=== PATIENT | female | born 1975 ===

== ENCOUNTER 2017-04-19 13:57 | Emergency (ER) | payer MEDICAID ==
[2016-04-08 23:35] VITALS: BMI 27.3
--- NOTE | 2017-04-19 14:41 | OBDCSUM ---
Datetime: 04/19/2017 14:39 Discharged to, Provider: Home Follow up at, Provider: apr 23 Follow up in weeks, Provider: clinic Discharge Comment, Provider: no sex po hyrationl labor given f/u in clinic in apr 23 Discharge Diagnosis Prov Other: 37wee previous c/s nst
--- NOTE | 2017-04-19 14:42 | OBHP ---
Datetime: 04/19/2017 14:36 IP Adm Impression: Term, intrauterine IP Admit Plan: Discharge home Admit Comment, IP Provider: at 37+weekscame with c/o ctxs started 5.30 pm, irrg ,no vb, lof,+fm . pt sytestes baby not moving much. pt has bad variciose veins obhx 2 c/s pmh de med pnv all nkda psh c/s soch de ve closed//-3 a/p at 37weeks previous c/s r/o labor dc home no sex po hyrationl labor given f/u in clinic in apr 23 Pelvic Type - PN: Adequate Extremities - PN: Normal Abdomen - PN: Normal Back - PN: Normal Breast - PN: Normal Lungs - PN: Normal Heart - PN: Normal Thyroid - PN: Normal Neurologic - PN: Normal HEENT - PN: Normal General - PN: Normal FHR - Baseline A Provider: 130 Contraction Comments Provider: none Comments, ACOG Physical Exam: gravid,nontender ex n edema dilated varicose veins IP Hx Assessment: The History has been Reviewed and is Current EGA AdmitDate IP: 37.1 Vital Signs Provider: Reviewed; Within Normal Limits IP Chief Complaint: Uterine contractions NICHD Variability Prov Fetus A: Moderate 6-25bpm NICHD Accel Fetus A IP Provider: 15X15 Dilatation, Provider: 0 Effacement, Provider: 0 Station, Provider: -3 Genitourinary Exam: Normal DTRs - PN: Normal
[2017-04-19 14:45] LABS: URINE BACTERIA RARE (<OCC); URINE BILIRUBIN NEGATIVE (NEGATIVE); URINE BLOOD NEGATIVE (NEGATIVE); URINE COLOR Straw (YELLOW); URINE GLUCOSE (UA) NORMAL (Normal); URINE KETONE NEGATIVE (NEGATIVE); URINE LEUKOCYTE ESTERASE NEG Leu/uL (Negative); URINE PROTEIN NEGATIVE (NEGATIVE); URINE UROBILINOGEN NORMAL mg/dL (0.2-1.0); WBC URINE < 1 /hpf (0-5)
[2017-04-19 19:13] VITALS: BP 118/73; PULSE 74; RESP 18; TEMP 97.9; O2SAT 99
== END 2017-04-19 14:55 | disposition home or self-care (01) ==
LOC: C.EROB 13:57
DX: O60.03 Preterm labor without delivery, third trimester (principal); Z3A.37 37 weeks gestation of pregnancy

== ENCOUNTER 2017-05-04 06:45 | Inpatient (IN) | payer MEDICAID ==
[2017-05-04 06:44] VITALS: BMI 25.9
[2017-05-04] MEDS: Lactated Ringer's 1,000 ML IV SCH ×2 (06:53→18:32)
[2017-05-04] MEDS ORDERED: cefOXitin IV 2 gm in Dextrose 2 GM/50 ML BAG IVPB ONE ×2 (06:55→07:16)
[2017-05-04] MEDS ORDERED: Sodium Citrate/Citric Acid 15 ml Sol PO ONE (06:55)
[2017-05-04] MEDS ORDERED: Sodium Citrate/Citric Acid 15 ml Sol ONE (07:16)
[2017-05-04 07:22] LABS: BASO % 0.4 % (0.0-2.0); EOS # 0.1 K/uL (0.0-0.7); EOS % 0.9 % (0.0-4.0); LYMPH % 25.1 % (20.0-40.0); MEAN CORPUSCULAR HEMOGLOBIN 30.5 pg (27.0-31.0); MEAN CORPUSCULAR HGB CONC 34.3 g/dL (33.0-37.0); MEAN PLATELET VOLUME 8.1 fL (7.2-11.7); MONO # 0.3 K/uL (0.0-0.8); MONO % 4.2 % (0.0-10.0); RED CELL DISTRIBUTION WIDTH 13.5 % (11.5-14.5); WHITE BLOOD COUNT 7.8 K/uL (4.8-10.8)
[2017-05-04 07:25] LABS: MEAN CELL VOLUME 88.9 fL (81.0-99.0)
[2017-05-04 07:35] LABS: CHLORIDE 106 mmol/L (98-107); SODIUM 134 mmol/L (132-148)
[2017-05-04 07:36] LABS: POTASSIUM 3.4 mmol/L (3.6-5.2); RBC URINE < 1 /hpf (0-3); URINE BACTERIA RARE (<OCC); URINE BILIRUBIN NEGATIVE (NEGATIVE); URINE BLOOD NEGATIVE (NEGATIVE); URINE COLOR Yellow (YELLOW); URINE GLUCOSE (UA) NORMAL (Normal); URINE KETONE NEGATIVE (NEGATIVE); URINE LEUKOCYTE ESTERASE NEG Leu/uL (Negative); URINE PROTEIN NEGATIVE (NEGATIVE); URINE UROBILINOGEN NORMAL mg/dL (0.2-1.0); WBC URINE < 1 /hpf (0-5)
[2017-05-04 07:38] LABS: ALB/GLOB RATIO 0.9 (1.0-2.1); ALKALINE PHOSPHATASE 156 U/L (38-126); ALT/SGPT 30 U/L (9-52); AST/SGOT 26 U/L (14-36); BILIRUBIN,TOTAL 0.5 mg/dL (0.2-1.3); BLOOD UREA NITROGEN 10 mg/dL (7-17); CARBON DIOXIDE 19 mmol/L (22-30); GFR AFRICAN-AMERICAN > 60; TOTAL PROTEIN 7.2 g/dL (6.3-8.3)
[2017-05-04 07:39] LABS: CALCIUM 8.6 mg/dl (8.6-10.4); GLUCOSE,RANDOM 69 mg/dL (65-105)
[2017-05-04] MEDS ORDERED: Oxytocin 10 Units/ml Inj ONE (07:50)
[2017-05-04] MEDS ORDERED: Oxycodone/Acetaminophen 5/325 mg Tab PO PRN (07:58)
--- NOTE | 2017-05-04 07:59 | OBADHP ---
Datetime: 05/04/2017 07:01 Admit Comment, IP Provider: Patient is a 42 year old at 39 weeks 2 days GORDY 05/09/17 by 12w5d US presents to L+D for scheduled repeat C/S. Patient is doing well, endorses +FM. Feeling occasional contractions . Denies LOF, Vaginal Bleeding Issues: AMA - declined amniocentesis, harmony low probability Previous C/S x 2 OB Hx: 1. 2013 PLTCD 2/2 arrest of descent, 41 weeks, 6lbs 10oz, no complications 2. 2015 RLTCD at 39 weeks, 6lbs 6oz, no complications 3. Current [employer] Hx: LMP - 08/19/16 12/regular/6 days Denies hx of fibroids, ovarian cysts Denies hx of abnormal pap smears Denies hx of STIs Allergies: NKDA Medications: PNV Medical History: Denies Surgical History: C/S x 2 Social History: Denies alcohol, tobacco, drug use; Lives with partner and two children Family History: Mother - healthy; Father - healthy PE: See above A/P: 42 year old at 39w2d presents for scheduled repeat C/S 1. Admit to unit 2. Stable, afebrile 3. CEFM and TOCO 4. Admission labs - T/S, CBC, CMP, UA 5. LR at 125cc/hr 5. Cefoxtin 2gm, bicitra, pepcid preop 6. Anesthesia notified 7. Plan d/w attending Lucina Kumar DO PGY-1 FHR - Baseline A Provider: 135 Comments, ACOG Physical Exam: VSS Gen: AAOx3 Abd: Soft, gravid Ext: No clubbing cyanosis, edema EFM: 135, mod variability, +accels, - decels TOCO: none IP Hx Assessment: The History has been Reviewed and is Current Vital Signs Provider: Reviewed; Within Normal Limits IP Chief Complaint: Scheduled Section NICHD Variability Prov Fetus A: Moderate 6-25bpm NICHD Accel Fetus A IP Provider: 15X15 FHR Category Provider Fetus A: Category I NICHD Decel Fetus A IP Provider: None EGA AdmitDate IP: 39.2 IP Adm Impression: Term, intrauterine IP Admit Plan: Admit to unit; Initiate Section protocol Datetime: 04/19/2017 14:36 Pelvic Type - PN: Adequate Extremities - PN: Normal Abdomen - PN: Normal Back - PN: Normal Breast - PN: Normal Lungs - PN: Normal Heart - PN: Normal Thyroid - PN: Normal Neurologic - PN: Normal HEENT - PN: Normal General - PN: Normal Contraction Comments Provider: none Dilatation, Provider: 0 Effacement, Provider: 0 Station, Provider: -3 Genitourinary Exam: Normal DTRs - PN: Normal
[2017-05-04] MEDS ORDERED: Morphine 1 mg/ml preservative-free Inj(Duramorph) ONE (08:02)
[2017-05-04] MEDS ORDERED: ePHEDrine 50 mg/ml Inj ONE (08:02)
[2017-05-04] MEDS ORDERED: DiphenhydrAMINE 50 mg/ml Inj IVP PRN (08:55)
--- NOTE | 2017-05-04 08:55 | OBDS ---
DELIVERY PERSONNEL Delivery Doctor: Philip Cervantes MD Scrub Nurse: Shaylee Marte Assembly Press Operator: Prema Ta RN Anesthesiologist: Kenya Kennedy MD MATERNAL INFORMATION Delivery Anesthesia: Spinal Medications in Delivery: pitocin 30mu Estimated Blood Loss (ml): 700 Placenta Cultured: No Maternal Complications: None Provider Comments: baby deliverd in [place]ba. end clean 9/9 no com LABOR SUMMARY EDC: 05/09/2017 00:00 No. Babies in Womb: 1 Attempted: No Labor Anesthesia: None LABOR INFORMATION Reason for Induction: Not Applicable Oxytocin: N/A Group B Beta Strep: Negative Antibiotics # of Doses: 1 Antibiotics Time of Last Dose: 0730 Steroids Given: None Reason Steroids Not Administered: Not Applicable MEMBRANES Membranes Rupture Method: Artificial Rupture of Membranes: 05/04/2017 08:28 Length of Rupture (hrs): 0.02 Amniotic Fluid Color: Clear Amniotic Fluid Amount: Moderate Amniotic Fluid Odor: Normal STAGES OF LABOR Stage 3 hrs: 0 Stage 3 min: 1 CSECTION DELIVERY Primary Indication: Repeat Elective CSection Urgency: Elective CSection Incidence: Repeat Labor: N/A Elective: Elective CSection Incision: Lower Uterine Transverse BABY A INFORMATION Delivery Date/Time: 05/04/2017 08:29 Method of Delivery: Born in Route : No : N/A Forceps: N/A Vacuum Extraction: N/A Shoulder Dystocia : No SHOULDER DYSTOCIA BABY A Delivery Date/Time: 05/04/2017 08:29 PRESENTATION/POSITION BABY A Presentation: Cephalic Cephalic Presentation: Vertex Vertex Position: Left Occipital Anterior Breech Presentation: N/A PLACENTA INFORMATION BABY A Placenta Delivery Time : 05/04/2017 08:30 Placenta Method of Delivery: Expressed Placenta Status: Delivered SCORES BABY A Heart Rate 1 min: >100 bpm Resp Effort 1 min: Good Cry Reflex Irritability 1 min: Cough or Sneeze or Pulls Away Muscle Tone 1 min: Active Motion Color 1 min: Body [place], Extremities Blue Resuscitation Effort 1 min: Tactile Stimulation SCORE 1 MIN: 9 Heart Rate 5 min: >100 bpm Resp Effort 5 min: Good Cry Reflex Irritability 5 min: Cough or Sneeze or Pulls Away Muscle Tone 5 min: Active Motion Color 5 min: Body [place], Extremities Blue Resuscitation Effort 5 min: N/A SCORE 5 MIN: 9 INFORMATION BABY A Gestational Age at Delivery: 39.2 Gestational Status: Term Infant Outcome : Liveborn Infant Condition : Stable Sex: Male IDENTIFICATION/MEDS BABY A ID Band Number: [id number] ID Band Location: Left Leg; Left Arm Sensor Applied: Yes Sensor Number: [id number] Sensor Location : Cord Clamp Vitamin K Given : Not Given Erythromycin Given: Not Given WEIGHT/LENGTH BABY A Infant Birthweight (gms): 3260 Weight (lb): 7 Infant Weight (oz): 3 Infant Length Inches: 20.00 Length cms: 50.8 CORD INFORMATION BABY A No. Cord Vessels: 3 Nuchal Cord : N/A Nuchal Cord Other: N/A True Knot: N/A Cord Blood Taken: Yes Banking/Donate Info: N/A Suction: Mouth; Nose ASSESSMENT BABY A Infant Complications: None Physical Findings at Delivery: Within Normal Limits Respirations: Appears Normal Salmon Gillnet Vessel Operator/ALS Called : No Care By: Virgil Brown RN/ Transferred To: Remains with Mother
--- NOTE | 2017-05-04 08:56 | PCM.SURG1 ---
Surgeon's Initial Post Op Note - Surgeon's Notes Surgeon: dr dawson Manager Global Communications: dr mcgrath Type of Anesthesia: Spinal Anesthesia Administered By: dr driscoll Pre-Operative Diagnosis: 42 yr at 39weeks elective repeat c/s Operative Findings: see the op reort Post-Operative Diagnosis: same Operation Performed: repeat section Specimen/Specimens Removed: cord blood. placente Estimated Blood Loss: EBL {In ML}: 700 Blood Products Given: N/A Drains Used: No Drains Post-Op Condition: Good Date of Surgery/Procedure: 05/04/17 Time of Surgery/Procedure: 09:00
[2017-05-04] MEDS: Simethicone 80 mg Chewtab PO SCH ×3 (16:50→22:31)
--- NOTE | 2017-05-04 20:19 | OP ---
PROCEDURE DATE: PREOPERATIVE DIAGNOSIS: A 42-year-old 3, para 2 at 39 weeks and 2 days for scheduled repeat section. POSTOPERATIVE DIAGNOSIS: A 42-year-old 3, para 2 at 39 weeks and 2 days for scheduled repeat section. SURGEON: Philip Cervantes MD TYPECASTING MACHINE OPERATOR: Dr. Rios, who was present throughout the surgery for exposure, retraction and pushing at the time of the delivery. TYPE OF ANESTHESIA: Spinal. ANESTHESIOLOGIST: Katja Helms MD COMPLICATIONS: None. ESTIMATED BLOOD LOSS: 700 mL. PROCEDURE: Repeat section. DESCRIPTION OF PROCEDURE: After informed consent was obtained, the patient was brought to the operating room, placed on the table where spinal anesthesia was given. Once the anesthesia was given, the patient was prepped and draped in the normal sterile fashion. At the site of previous skin incision, an incision was made with a knife, the subcutaneous cut with a Bovie. The fascia was then excised on both the sides using curved Jeffrey scissors. The fascia was from the site of the umbilicus and then at the site of the pubic bone. Rectus muscle was . Rectus muscle was lifted up with 2 Allis and it was cut with the knife and then it was extended using the curved Jeffrey scissors. Bladder blade was placed. Bladder flap was created. Lower uterine segment incision was made with a knife, it was extended using Bovie and curved Jeffrey scissors. Baby was delivered in an LUANA position, cord was clamped and cut, baby was handed to the awaiting keycase assembler. Cord gas was taken. Placenta delivered manually. After that, uterus was exteriorized and cleared of all clots. Uterine massage was done. Uterine was closed using #1 Vicryl in running interlocking fashion, second layer was closed with the same stitch. After that, Cul-de-sac was cleared of all the clots and debris. Uterus was returned back to abdominal cavity. After that, incision was looked back and it was hemostatic. Interceed was placed hemostasis, and then the peritoneum was closed using 2-0 Vicryl in running interlocking fashion. Muscle was closed using 2-0 Vicryl in running interlocking fashion. The fascia was closed using #1 Vicryl in running interlocking fashion. Subcutaneous tissue was closed with 0 Vicryl in running interrupted fashion. Skin was closed using 3-0 Monocryl needle. The patient tolerated the procedure well. Laps, sponge and instrument counts correct x2. Philip Cervantes MD
[2017-05-05] MEDS: Lactated Ringer's 1,000 ML IV SCH (03:08)
[2017-05-05] MEDS: Oxycodone/Acetaminophen 5/325 mg Tab PO PRN ×2 (05:39→22:08)
[2017-05-05] MEDS ORDERED: Bisacodyl 5mg EC Tab PO ONE ×2 (08:00→10:30)
[2017-05-05 08:41] LABS: HEMATOCRIT 32.7 % (34.0-47.0); MEAN CELL VOLUME 89.4 fL (81.0-99.0); MEAN CORPUSCULAR HEMOGLOBIN 30.6 pg (27.0-31.0); MEAN CORPUSCULAR HGB CONC 34.2 g/dL (33.0-37.0); MEAN PLATELET VOLUME 8.4 fL (7.2-11.7); RED CELL DISTRIBUTION WIDTH 13.6 % (11.5-14.5); WHITE BLOOD COUNT 9.5 K/uL (4.8-10.8)
[2017-05-05] MEDS: Simethicone 80 mg Chewtab PO SCH ×4 (10:23→22:09)
--- NOTE | 2017-05-05 19:24 | OBPPN ---
Datetime: 05/05/2017 08:06 PP Pain Prov: Within normal limits PP Nausea Prov: Denies PP Flatus Prov: No PP BM Prov: No PP Heart Prov: Normal PP Lungs Prov: Normal PP Abdomen/Uterus Prov: Normal PP Lochia Prov: Normal PP Vulva/Perineum Prov: Normal PP Extremities Prov: Normal PP C/S Incision Prov: Normal PP Progress Prov: Normal PP Impression Prov: Normal progression PP Plan Prov: Continue present management PP Progress Note Prov: Patient seen and examined at bedside. Per nursing no acute events overnight. Patient is doing well, pain is controlled. States that she had a few episodes of vomiting last night. Last episode was approximately 7:30pm. Currently feeling better. Lochia is mild. Ambulating and tole rating clears. Urinating without difficulty. Breast feeding. Denies passing flatus and BM. Denies fev ers, chills, N/V, headaches, dizziness, cp, palpitations, sob, urinary symptoms. VS: 115/63 83 98.3 I/O: 2125/1100 Gen: AAOx3 CV: RRR Lungs: CTA B/L Abd: soft, appropriately tender, fudus firm at umbilicus, dressing c/d/i Ext: no clubbing, cyanosis, edema; no calf tenderness Labs: 7.8>12.4/36.0<254 F/U am CBC O positive Rubella immune A/P: 42 year old at 39w2d s/p RLTCD POD#1 1. Stable, afebrile 2. Pain control - percocet and motrin prn 3. F/U am CBC 4. Advance diet as tolerate 5. Encourage ambulation and hydration 6. Encourage breast feeding and ISS use 7. Male - declined circ 8. Continue routine care 9. Plan d/w attending Lucina Kumar DO PGY-1 Patient examined.agre with resident exam, assessment and plan Vital Signs Provider PP: Reviewed; Within Normal Limits
[2017-05-06] MEDS: Oxycodone/Acetaminophen 5/325 mg Tab PO PRN ×2 (09:00→16:25)
[2017-05-06] MEDS: Simethicone 80 mg Chewtab PO SCH ×4 (09:17→22:16)
--- NOTE | 2017-05-06 12:54 | OBPPN ---
Datetime: 05/06/2017 10:20 PP Pain Prov: Within normal limits PP Nausea Prov: Denies PP Flatus Prov: Yes PP BM Prov: Yes PP Heart Prov: Normal PP Lungs Prov: Normal PP Abdomen/Uterus Prov: Normal PP Lochia Prov: Normal PP C/S Incision Prov: Normal PP Progress Prov: Normal PP Comments Phys Exam Prov: Abdomen: Soft, appropriately tender, fundus is firm and below umbilicus PP Impression Prov: Normal progression PP Plan Prov: Continue present management PP Progress Note Prov: Patient seen and examined at bedside. Patient reports that she is doing well and pain is well-controlled. Patient admits to mild lochia, passing flatus, had a bowel movement and urinating without difficulty. Patient is ambulating and tolerating diet. Patient denies chest pain, p alpitations, nausea, vomiting, fever, chills, dizziness and calf tenderness. Patient is breast feedin g. VS: 119/75 HR: 96, Temp: 99.5 I/O: 2250/1110 Gen: AAOx3 CV: RRR Lungs: CTA B/L Abd: soft, appropriately tender, fudus firm at umbilicus, dressing c/d/i Ext: no clubbing, cyanosis, edema; no calf tenderness Labs: 7.8>12.4/36.0<254 9.5>11.2/32.7<244 O positive Rubella immune A/P: 42 year old at 39w2d s/p RLTCD POD#2 1. Stable, afebrile 2. Pain control - percocet and motrin prn 3. Encourage ambulation and hydration 4. Encourage breast feeding and ISS use 5. Male infant - declined circ 6. Continue routine care 7. Anticipate discharge tomorrow 8. Plan d/w attending Epifanio Brown, PGY-1, DO Dr Cervantes saw the pateint and agrees
[2017-05-07] MEDS: Oxycodone/Acetaminophen 5/325 mg Tab PO PRN (01:40)
[2017-05-07] MEDS: Simethicone 80 mg Chewtab PO SCH ×2 (10:08→14:04)
[2017-05-07] MEDS ORDERED: Influenza Vaccine 60 mcg/0.5 mL SYR (4YR UP) IM ONE (12:00)
--- NOTE | 2017-05-07 13:22 | OBPPN ---
Datetime: 05/07/2017 09:56 PP Pain Prov: Within normal limits PP Nausea Prov: Denies PP Flatus Prov: Yes PP BM Prov: Yes PP Breasts Prov: Normal PP Heart Prov: Normal PP Lungs Prov: Normal PP Abdomen/Uterus Prov: Normal PP Lochia Prov: Normal PP Extremities Prov: Normal PP C/S Incision Prov: Normal PP Impression Prov: Normal progression PP Plan Prov: Continue present management; Discharge PP Progress Note Prov: Patient seen and examined at bedside. Per nursing, no acute events overnight. Patient is doing well, pain is controlled. Lochia is mild. Patient is ambulating and tolerating diet . Urinating without difficulty. Passing flatus and BM. Denies headaches, dizziness, cp, palpitations, sob, urinary symptoms. Breast feeding. VS: 116/68 85 97.6 Gen: AAOx3 CV: RRR Lungs: CTA B/L Abd: Soft, appropriately tender, fundus firm 2 fingerbreaths below umbilicus, incision c/d/i with suture Ext: No clubbing, cyanosis, edema; no calf tenderness Labs: 7.8>12.4/36.0<254 9.5>11.2/32.7<244 O positive Rubella immune A/P: 42 year old at 39w2d s/p RLTCD POD#3 1. Stable, afebrile 2. Pain control - percocet and motrin prn 3. Encourage ambulation and hydration 4. Encourage breast feeding and ISS use 5. Male infant - declined circ 6. Continue routine care 7. Anticipate discharge today - pelvic rest x 6 weeks, f/u with clinic in 1 week for incision chec k 8. Plan d/w attending Lucina Kumar DO PGY-1 Attending Note: patient seen and evaluated by me with Resident. I agree with the above as docume nted. Patient is unsure re: contraception. Clinically stable. Plan: 1) Discharge home 2) see full discharge instructions Vital Signs Provider PP: Reviewed; Within Normal Limits
--- NOTE | 2017-05-07 13:22 | OBDCSUM ---
Datetime: 05/07/2017 13:21 Discharged to, Provider: Home Follow up at, Provider: Clinic Disch Instr Activity: May be up to bathroom; May be up for meals; May Shower Disch Instr Diet: Regular Discharge Instructions, Provider: Routine instructions given Discharge Diagnosis, Provider: Term Delivered Follow up in weeks, Provider: 05/11/17 Contraception discussed, Prov: Yes Disch Activity Restrictions: No exercising; No lifting; No sexual activity; Nothing in vagina - Inte rcourse, tampons, douche Discharge Diagnosis Prov Other: Advanced maternal age Status post repeat C/section Contraception couseling Contraception after Delivery: Undecided
[2017-05-07 23:24] VITALS: BP 119/69; PULSE 85; RESP 20; TEMP 97.9; O2SAT 99
== END 2017-05-07 16:45 | disposition home or self-care (01) | DRG 371 ==
LOC: C.4D 06:45 → C.4M 12:05
PROVIDERS: ADMIT Obstetrics & Gynecology; ATTEND Obstetrics & Gynecology
PROC: 10D00Z1 Extraction of Products of Conception, Low, Open Approach (ICD-10-PCS; principal; 2017-05-04)
DX: O34.211 Maternal care for low transverse scar from previous cesarean delivery (principal); Z37.0 Single live birth; Z3A.39 39 weeks gestation of pregnancy